=== PATIENT | male | born 1985 | race Two or more races ===

== ENCOUNTER 2022-03-02 10:32 | Emergency (ER) | payer OTHER ==
[2022-03-02 11:04] VITALS: BP 112/71; PULSE 56; TEMP 97.4; BMI 33.0
[2022-03-02] MEDS ORDERED: DEXAMETHASONE SOD PHOSPHATE 10 MG/1 ML VIAL IM ONE (11:34)
[2022-03-02] MEDS ORDERED: DEXAMETHASONE SOD PHOSPHATE 10 MG/1 ML VIAL ONE (11:43)
== END 2022-03-02 12:53 | disposition home or self-care (01) ==
LOC: JERFT 10:32
PROC: 3E0233Z Introduction of Anti-inflammatory into Muscle, Percutaneous Approach (ICD-10-PCS; principal; 2022-03-02)
DX: L23.7 Allergic contact dermatitis due to plants, except food (principal)
CPT/HCPCS: 96372; 99284-25